=== PATIENT | male | born 1990 | race African-American/Black ===

== ENCOUNTER 2023-09-01 17:14 | Observation (INO) | payer OTHER ==
[2023-09-01] MEDS ORDERED: NA CHLORIDE 0.9% 1,000 ML ONE ×3 (18:02→22:09)
[2023-09-01 18:07] LABS: Absolute Lymphocytes (CBC) 1.5 K/uL (0.7-4.9); Absolute Monocytes 0.9 K/uL (0.1-1.3); Absolute Neutrophil 4.1 K/uL (1.8-8.0); Basophils % 0.6 % (0-1.3); Eosinophils % 0.2 % (0-4.4); Hematocrit 30.1 % (39.6-49.0); Hemoglobin 9.9 g/dL (13.6-17.9); Lymphocytes % 23.5 % (15.3-44.8); MCH 31.7 pg (27.0-35.0); MCHC 32.8 g/dL (32.0-36.0); MCV 96.8 fL (80-100); MPV 7.5 fL (7.6-11.3); Monocytes % 13.5 % (3.3-12.3); Neutrophils % 62.2 % (41.7-73.7); Nucleated Red Blood Cells % 0.1 % (0-0); Platelets 358 thou/uL (152-406); RBC Red Blood Cell Count 3.11 M/uL (4.33-5.43); Red Cell Distribution Width 16.5 % (12.1-15.2)
[2023-09-01 18:33] LABS: Albumin 3.4 g/dL (3.4-5.0); Albumin/Globulin Ratio 0.5 (1.1-1.8); Anion Gap 9.8 mEq/L (5.0-15.0); Bilirubin Direct 0.2 mg/dL (0-0.2); Bilirubin Indirect, Calculated 0.3 mg/dL (0.2-0.8); Bilirubin Total 0.5 mg/dL (0.2-1.0); Globulin 6.3 g/dL (2.3-3.5); Potassium 3.8 mEq/L (3.5-5.1); Protein, Total 9.7 g/dL (6.4-8.2); Troponin High Sensitivity 4.7 pg/mL (<58.9)
[2023-09-01] MEDS ORDERED: LORazepam 2 MG/ML VIAL ONE ×2 (19:00→19:21)
[2023-09-01] MEDS ORDERED: ONDANSETRON 4 MG/2 ML VIAL ONE (19:21)
[2023-09-01] MEDS ORDERED: ZIPRASIDONE MESYLA 20 MG/VIAL IM ONE (21:48)
[2023-09-01] MEDS ORDERED: WATER FOR INJ,STERILE 10 ML ONE (21:48)
[2023-09-01 21:55] LABS: Barbiturates NEGATIVE (NEGATIVE); Benzodiazepines NEGATIVE (NEGATIVE); Cocaine NEGATIVE (NEGATIVE); METHAMPHETAM POSITIVE (NEGATIVE); Methadone NEGATIVE (NEGATIVE); Opiates NEGATIVE (NEGATIVE); Phencyclidine NEGATIVE (NEGATIVE); THC Cannibis NEGATIVE (NEGATIVE)
[2023-09-01] MEDS ORDERED: THIAMINE 200 MG/2 ML INJ ONE (22:07)
[2023-09-01] MEDS ORDERED: FOLIC ACID 5 MG/ML VIAL ONE (22:08)
[2023-09-01] MEDS ORDERED: MULTIVITAMINS 10 ML VIAL (INJ) IV ONE (22:08)
--- NOTE | 2023-09-02 00:10 | EDPHYS ---
Physician Documentation [facility] Name: Antwan Ashley Age: 32 yrs Sex: Male : 1990 Arrival Date: 09/01/2023 Time: 17:14 Bed 16 Private MD: ED Physician Kuldip Dougherty HPI: 08/31 19:11 This 32 yrs old Black Male presents to ER via Law Enforcement with complaints of rt Possible Overdose. 19:11 Patient presents to the ED in police custody for possible overdose. Patient was found rt methamphetamines. They are concerned that the patient may have been hiding amphetamines. Denies any physical complaints at this time, symptoms are moderate severity, no other aggravating relieving factors.. Historical: - Allergies: 17:22 No Known Allergies; cp4 - Immunization history:: Adult Immunizations up to date. - Infectious Disease History:: Denies. CDIFF, C. Auris, ESBL, MRSA (w/in 1 year), VRE (w/in 1 year), TB, . - Social history:: Smoking status: unknown. - Family history:: not pertinent. ROS: 19:11 Constitutional: Negative for fever, chills, and weight loss, Cardiovascular: Negative rt for chest pain, palpitations, and edema, Respiratory: Negative for shortness of breath, cough, wheezing, and pleuritic chest pain, Abdomen/GI: Negative for abdominal pain, nausea, vomiting, diarrhea, and constipation, MS/Extremity: Negative for injury and deformity, Skin: Negative for injury, rash, and discoloration, Exam: 19:11 Constitutional: This is a well developed, well nourished patient who is awake, alert, rt and in no acute distress. Head/Face: Normocephalic, atraumatic. Chest/axilla: Normal chest wall appearance and motion. Nontender with no deformity. No lesions are appreciated. Cardiovascular: Regular rate and rhythm with a normal S1 and S2. No gallops, murmurs, or rubs. Normal PMI, no JVD. No pulse deficits. Respiratory: Lungs have equal breath sounds bilaterally, clear to auscultation and percussion. No rales, rhonchi or wheezes noted. No increased work of breathing, no retractions or nasal flaring. Abdomen/GI: Soft, non-tender, with normal bowel sounds. No distension or tympany. No guarding or rebound. No evidence of tenderness throughout. Skin: Warm, dry with normal turgor. Normal color with no rashes, no lesions, and no evidence of cellulitis. MS/ Extremity: Pulses equal, no cyanosis. Neurovascular intact. Full, normal range of motion. 19:11 ECG was reviewed by the Attending Physician. Vital Signs: 17:17 BP 152 / 110; Pulse 112; Resp 18; Temp 98; Pulse Ox 100% ; Weight 81.65 kg; Height 5 cp4 ft. 11 in. ; 18:42 BP 163 / 105; Pulse 117; Resp 18; Pulse Ox 95% ; cp4 19:30 BP 162 / 104; Pulse 109; Resp 18; Pulse Ox 98% ; cp4 20:40 BP 145 / 106; Pulse 118; Resp 18; Pulse Ox 97% ; cp4 22:50 BP 137 / 89; Pulse 118; Resp 20 S; Pulse Ox 100% on R/A; ha1 23:30 BP 144 / 85; Pulse 111; Resp 17 S; Pulse Ox 100% on R/A; ha1 09/01 00:20 BP 131 / 84; Pulse 109; Resp 17 S; Pulse Ox 100% on R/A; ha1 01:20 BP 138 / 89; Pulse 104; Resp 17 S; Pulse Ox 100% on R/A; ha1 08/31 17:17 Body Mass Index 25.10 (81.65 kg, 180.34 cm) cp4 MDM: 08/31 17:33 Patient medically screened. rt 09/01 00:02 ED course: EXAM DESCRIPTION: CT of the head without contrast CLINICAL HISTORY: AMS sp4 COMPARISON: None available TECHNIQUE: Axial CT of the head obtained from the skull apex to the skull base without contrast. This exam was performed according to our departmental dose-optimization program, which includes automated exposure control, adjustment of the mA and/or kV according to patient size and/or use of iterative reconstruction technique. FINDINGS: No acute intracranial hemorrhage identified. No mass, mass effect, midline shift, or abnormal extra-axial fluid collection. No CT evidence of acute ischemic change identified, however, MRI is more sensitive in the assessment of acute ischemia. Probable prominent perivascular space on the right. Ventricular system and sulcal spaces are normal in size and morphology. Basilar cisterns are patent. Visualized orbits and globes show no acute abnormality. No skull fracture identified. Patchy mucosal thickening involving the ethmoid air cells bilaterally. Remainder of the visualized paranasal sinuses and mastoid air cells are well aerated. IMPRESSION: No acute intracranial abnormality on noncontrast CT. . 00:09 Differential diagnosis: polypharmacy, over medication, hypoglycemia, closed head sp4 injury, intracranial hemorrhage. Data reviewed: vital signs, nurses notes, lab test result(s), radiologic studies, CT scan. Consideration of Admission/Observation Escalation of care including admission/observation considered. ED course: Patient's workup is indicative of acute methamphetamine intoxication plus rhabdomyolysis which is mild. Patient also has exhibited around the penis which was cut off in the emergency department. Patient does have swollen penis but there is no sign of penile necrosis. Patient warrants admission secondary to the fact that he continues to have acute delirium. Patient had to be given Ativan and Geodon for acute hyperactive delirium right now he is resting but warrants hospital admission overnight. . 08/31 17:33 Order name: Basic Metabolic Panel; Complete Time: 18:51 rt 08/31 17:33 Order name: CBC with Diff; Complete Time: 18:51 rt 08/31 17:33 Order name: LFT's; Complete Time: 18:51 rt 08/31 17:33 Order name: Magnesium; Complete Time: 18:51 rt 08/31 17:33 Order name: Troponin HS; Complete Time: 18:51 rt 08/31 17:33 Order name: CPK; Complete Time: 18:51 rt 08/31 18:52 Order name: CPK: repeat after ivf; Complete Time: 21:31 rt 08/31 21:31 Order name: Urine Drug Screen; Complete Time: 23:06 sp4 08/31 21:31 Order name: Alcohol Level; Complete Time: 23:06 sp4 08/31 21:31 Order name: Lactate w/ 2H reflex if indic.; Complete Time: 23:06 sp4 09/01 00:20 Order name: Urinalysis w/ reflexes EDMS 09/01 00:20 Order name: CBC with Automated Diff EDMS 09/01 00:20 Order name: CBC with Automated Diff EDMS 09/01 00:20 Order name: Comprehensive Metabolic Panel EDMS 09/01 00:20 Order name: Comprehensive Metabolic Panel EDMS 09/01 00:20 Order name: Creatine Phosphokinase [facility] 09/01 00:20 Order name: Creatine Phosphokinase [facility] 09/01 00:20 Order name: Creatine Phosphokinase [facility] 09/01 00:20 Order name: Creatine Phosphokinase [facility] 08/31 21:31 Order name: CT Head Brain wo Cont sp4 08/31 17:33 Order name: EKG; Complete Time: 17:34 rt 08/31 17:33 Order name: Cardiac monitoring; Complete Time: 17:55 rt 08/31 17:33 Order name: EKG - Nurse/Tech; Complete Time: 18:12 rt 08/31 17:33 Order name: IV Saline Lock; Complete Time: 17:55 rt 08/31 17:33 Order name: Labs collected and sent; Complete Time: 17:55 rt 08/31 17:33 Order name: O2 Per Protocol; Complete Time: 18:12 rt 08/31 17:33 Order name: O2 Sat Monitoring; Complete Time: 18:12 rt EC/20 19:11 Rate is 117 beats/min. Rhythm is regular, Sinus tachycardia with No ectopy. QRS [place] is rt Normal. MO interval is normal. QRS interval is normal. QT interval is normal. No Q waves. T waves are Normal. No ST changes noted. Interpreted by me. Administered Medications: 18:13 Drug: NS 0.9% IV 1000 ml IV at 1000 ml once Route: IV; Rate: 1000 ml; Site: left cp4 antecubital; 18:56 Follow up: Response: No adverse reaction; IV Status: Completed infusion cp4 19:06 Drug: NS 0.9% IV 1000 ml IV at 1000 ml once Route: IV; Rate: 1000 ml; Site: left cp4 antecubital; 19:25 Follow up: IV Status: Completed infusion cp4 19:25 Follow up: Response: No adverse reaction cp4 19:06 Drug: Ativan IVP 1 mg IVP once Route: IVP; Site: left antecubital; cp4 19:19 Follow up: Response: No adverse reaction cp4 19:24 Drug: Ativan IVP 1 mg IVP once Route: IVP; Site: left antecubital; cp4 19:24 Follow up: Response: No adverse reaction cp4 19:24 Drug: Ondansetron IVP 4 mg IVP once; over 2 minutes Route: IVP; Site: left antecubital; cp4 19:24 Follow up: Response: No adverse reaction cp4 21:56 Drug: Geodon IM 20 mg IM once Route: IM; Site: left deltoid; ha1 23:00 Follow up: Response: No adverse reaction; Anxiety decreased; RASS: Drowsy (-1) ha1 22:00 Drug: Banana Bag - (Multivitamin IV 1 amp, NS 0.9% IV 1000 ml, Thiamine IV 100 mg, ha1 foLIC Acid IVPB 1 mg) IV at calculated rate once Route: IV; Rate: calculated rate; Site: right antecubital; 09/01 02:00 Follow up: Response: No adverse reaction; IV Status: Infusion continued; IV Intake: ha1 500ml Disposition Summary: 09/02/23 00:09 Hospitalization Ordered Notes: Hospitalization Status: Observation sp4 Provider: Sammy Brown Location: Telemetry/MedSurg (observation) sp4 Condition: Stable sp4 Problem: new sp4 Symptoms: have improved sp4 Bed/Room Type: Standard sp4 Room Assignment: 202(09/02/23 00:43) lg3 Diagnosis - Acute hyperactive delirium secondary to methamphetamine, methamphetamine abuse, sp4 acute penile swelling, rhabdomyolysis Forms: - Medication Reconciliation Form sp4 - SBAR form sp4 - Leadership Thank You Letter sp4 Signatures: Dispatcher [employer] Bianca Guardado RN RN 3 Krystyna Gaviria RN RN ha1 Edward Farmer MD MD rt Villegas, Rebecca rv1 Kuldip Dougherty MD MD 4 Rachel Ulloa 4 Corrections: (The following items were deleted from the chart) 08/31 17:34 17:34 BASIC METABOLIC PANEL+C.LAB.BRZ ordered. EDMS EDMS 17:34 17:34 CBC+H.LAB.BRZ ordered. EDMS EDMS 17:34 17:34 HEPATIC FUNCTION+C.LAB.BRZ ordered. EDMS EDMS 17:34 17:34 MAGNESIUM+C.LAB.BRZ ordered. EDMS EDMS 17:34 17:34 Troponin High Sensitivity+C.LAB.BRZ ordered. EDMS EDMS 17:34 17:34 CREATINE PHOSPHOKINASE+C.LAB.BRZ ordered. EDMS EDMS 21:31 21:31 Head Brain Wo Cont+CT.RAD.BRZ ordered. EDMS EDMS : URINE DRUG SCREEN+UC.LAB.BRZ ordered. EDMS EDMS : ETHANOL+C.LAB.BRZ ordered. EDMS EDMS 09/01 00:41 00:09 sp4 rv1 00:43 00:41 426 rv1 lg3
--- NOTE | 2023-09-02 00:10 | ER ---
Nurse's Notes [facility] Name: Antwan Ashley Age: 32 yrs Sex: Male : 1990 Arrival Date: 09/01/2023 Time: 17:14 Bed 16 Private MD: Diagnosis: Acute hyperactive delirium secondary to methamphetamine, methamphetamine abuse, acute penile swelling, rhabdomyolysis Presentation: 08/31 17:17 Chief complaint: police report possible ingestion and states they need medical cp4 clearance to take patient to [facility]. Coronavirus screen: Client denies travel out of the [place] in the last 14 days. At this time, the client does not indicate any symptoms associated with coronavirus-19. Ebola Screen: Patient negative for fever greater than or equal to 101.5 degrees Fahrenheit, and additional compatible Ebola Virus Disease symptoms Patient denies exposure to infectious person. Patient denies travel to an Ebola-affected area in the 21 days before illness onset. No symptoms or risks identified at this time. Initial Sepsis Screen: Does the patient meet any 2 criteria? HR > 90 bpm. No. Patient's initial sepsis screen is negative. Does the patient have a suspected source of infection? No. Patient's initial sepsis screen is negative. Risk Assessment: Do you want to hurt yourself or someone else? Patient reports no desire to harm self or others. Onset of symptoms was September 01, 2023. 17:17 Method Of Arrival: Law Enforcement: Karyn HELM cp4 17:17 Acuity: SHANI 3 cp4 Triage Assessment: 17:22 General: Appears in no apparent distress. Behavior is calm, cooperative, appropriate cp4 for age. Pain: Denies pain. Historical: - Allergies: 17:22 No Known Allergies; cp4 - Immunization history:: Adult Immunizations up to date. - Infectious Disease History:: Denies. CDIFF, C. Auris, ESBL, MRSA (w/in 1 year), VRE (w/in 1 year), TB, . - Social history:: Smoking status: unknown. - Family history:: not pertinent. Screenin:24 [facility] ED Fall Risk Assessment (Adult) History of falling in the last 3 months, cp4 including since admission No falls in past 3 months (0 pts). Abuse screen: Denies threats or abuse. Nutritional screening: No deficits noted. Tuberculosis screening: No symptoms or risk factors identified. Assessment: 17:24 Reassessment: Patient appears in no apparent distress at this time. cp4 17:24 Cardiovascular: No deficits noted. Respiratory: No deficits noted. cp4 20:04 Reassessment: Nurse alerted to tie wrap around patient's penis by [place] officer. cp4 Provider notified and tie wrap removed. 22:10 General: Appears unkempt, Behavior is anxious, restless. Pain: Unable to use pain ha1 scale. FLACC scale score is 0 out of 10. Neuro: Level of Consciousness is awake, Oriented to person, place. Cardiovascular: Patient's skin is warm and dry. Respiratory: Airway is patent Respiratory effort is even, unlabored, Respiratory pattern is regular, symmetrical. : SWELLING OF PENIS. Derm: Skin is normal. Musculoskeletal: Circulation, motion, and sensation intact. Range of motion: intact in all extremities. 23:00 Reassessment: EYES CLOSED. ha1 23:00 Respiratory: Airway is patent Respiratory effort is even, unlabored, Respiratory ha1 pattern is regular, symmetrical. 09/01 00:00 Reassessment: EYES CLOSED. Respiratory: Airway is patent Respiratory effort is even, ha1 unlabored, Respiratory pattern is regular, symmetrical. 01:00 Reassessment: Patient and/or family updated on plan of care and expected duration. Pain ha1 level reassessed. 01:14 Reassessment: FAX SHEET SENT AND RECEIVED BY TYLER MONTGOMERY. ha1 02:00 Reassessment: Patient and/or family updated on plan of care and expected duration. Pain ha1 level reassessed. 02:00 Respiratory: Airway is patent Respiratory effort is even, unlabored, Respiratory ha1 pattern is regular, symmetrical. Overdose: 01:00 [place] Suicide Severity Screening: "In the past month, have you wished you were ha1 or wished you could go to sleep and not wake up?" REFUSED TO ANSWER "In the past month, have you actually had any thoughts of killing yourself?" "In your lifetime, have you ever done anything, started to do anything, or prepared to do anything to end your life?". Vital Signs: 08/31 17:17 BP 152 / 110; Pulse 112; Resp 18; Temp 98; Pulse Ox 100% ; Weight 81.65 kg; Height 5 cp4 ft. 11 in. ; 18:42 BP 163 / 105; Pulse 117; Resp 18; Pulse Ox 95% ; cp4 19:30 BP 162 / 104; Pulse 109; Resp 18; Pulse Ox 98% ; cp4 20:40 BP 145 / 106; Pulse 118; Resp 18; Pulse Ox 97% ; cp4 22:50 BP 137 / 89; Pulse 118; Resp 20 S; Pulse Ox 100% on R/A; ha1 23:30 BP 144 / 85; Pulse 111; Resp 17 S; Pulse Ox 100% on R/A; ha1 09/01 00:20 BP 131 / 84; Pulse 109; Resp 17 S; Pulse Ox 100% on R/A; ha1 01:20 BP 138 / 89; Pulse 104; Resp 17 S; Pulse Ox 100% on R/A; ha1 08/31 17:17 Body Mass Index 25.10 (81.65 kg, 180.34 cm) cp4 ED Course: 08/31 17:16 Patient arrived in ED. cp4 17:17 Rachel Ulloa is Primary Nurse. cp4 17:18 Edward Farmer MD is Attending Physician. rt 17:22 Triage completed. cp4 17:22 Arm band placed on right wrist. Patient placed in an exam room, on a stretcher. cp4 17:24 Bed in low position. Call light in reach. Side rails up X2. Security at bedside. cp4 18:00 Initial lab(s) drawn, by me, sent to lab. EKG done, by ED staff. Inserted saline lock: [id number] 20 gauge in left antecubital area, using aseptic technique. Blood collected. 18:12 Basic Metabolic Panel Sent. cp4 19:07 Attending Physician role handed off by Edward Farmer MD sp4 19:07 Kuldip Dougherty MD is Attending Physician. sp4 21:42 Urine Drug Screen Sent. ha1 21:59 Lactate w/ 2H reflex if indic. Sent. oe 22:00 Report received from TYLER DUNLAP. ha1 22:05 Provided Education on: MEDICATION ADMINISTRATION . ha1 22:53 CT Head Brain wo Cont In Process Unspecified. EDMS 09/01 00:07 Sammy Brown MD is Hospitalizing Provider. sp4 01:57 No provider procedures requiring assistance completed. ha1 02:50 Patient admitted, IV remains in place. ha1 Administered Medications: 08/31 18:13 Drug: NS 0.9% IV 1000 ml IV at 1000 ml once Route: IV; Rate: 1000 ml; Site: left cp4 antecubital; 18:56 Follow up: Response: No adverse reaction; IV Status: Completed infusion cp4 19:06 Drug: NS 0.9% IV 1000 ml IV at 1000 ml once Route: IV; Rate: 1000 ml; Site: left cp4 antecubital; 19:25 Follow up: IV Status: Completed infusion cp4 19:25 Follow up: Response: No adverse reaction cp4 19:06 Drug: Ativan IVP 1 mg IVP once Route: IVP; Site: left antecubital; cp4 19:19 Follow up: Response: No adverse reaction cp4 19:24 Drug: Ativan IVP 1 mg IVP once Route: IVP; Site: left antecubital; cp4 19:24 Follow up: Response: No adverse reaction cp4 19:24 Drug: Ondansetron IVP 4 mg IVP once; over 2 minutes Route: IVP; Site: left antecubital; cp4 19:24 Follow up: Response: No adverse reaction cp4 21:56 Drug: Geodon IM 20 mg IM once Route: IM; Site: left deltoid; ha1 23:00 Follow up: Response: No adverse reaction; Anxiety decreased; RASS: Drowsy (-1) ha1 22:00 Drug: Banana Bag - (Multivitamin IV 1 amp, NS 0.9% IV 1000 ml, Thiamine IV 100 mg, ha1 foLIC Acid IVPB 1 mg) IV at calculated rate once Route: IV; Rate: calculated rate; Site: right antecubital; 09/01 02:00 Follow up: Response: No adverse reaction; IV Status: Infusion continued; IV Intake: ha1 500ml Medication: 08/31 17:24 VIS not applicable for this client. cp4 Intake: 09/01 02:00 IV: 500ml; Total: 500ml. ha1 Outcome: 00:09 Decision to Hospitalize by Provider. sp4 01:15 Admitted to Med/surg accompanied by leila, via stretcher, with chart, Report called to bahman MONTGOMERY RN 02:50 Condition: stable ha1 02:50 Instructed on the need for admit, 1 02:53 Patient left the ED. ha1 Signatures: Dispatcher [employer] EDMS Bright Smart Heidy, RN RN ha1 Edward Farmer MD MD rt Kuldip Dougherty MD MD sp4 Rachel Ulloa cp4 Angel Sanchez [id number]
[2023-09-02] MEDS ORDERED: ACETAMINOPHEN 325 MG TABLET PO PRN (00:14)
[2023-09-02] MEDS ORDERED: ONDANSETRON 4 MG/2 ML VIAL IV PRN (00:14)
--- NOTE | 2023-09-02 00:14 | P.HP ---
Certification for Inpatient Patient admitted to: Observation With expected LOS: <2 Midnights Practitioner: I am a practitioner with admitting privileges, knowledge of patient current condition, hospital course, and medical plan of care. Services: Services provided to patient in accordance with Admission requirements found in Title 42 Section 412.3 of the Code of Federal Regulations Patient History Date of Service: 09/02/23 Reason for admission: Altered mental status History of Present Illness: 32 yrs old Male with unknown past medical history brought to ER with altered mental status. Patient is barely arousable and has could not offer any history hence most of the history is obtained from the chart review and also talking to the ER physician . He was brought to ER via Law Enforcement with complaints of Possible Overdose. Patient presents to the ED in police custody for possible overdose. Patient was found to have methamphetamines. They are concerned that the patient may have been hiding amphetamines. He was assessed in the ER and started on supportive management Patient was admitted for further management for medical clearance Allergies No Known Allergies Allergy (Unverified 09/02/23 00:28) - Past Medical/Surgical History Past Medical History: Unable to obtain Past Surgical History: Unable to obtain - Social History Smoking Status: Unknown if ever smoked Review of Systems is unable to be obtained Physical Examination - Vital Signs Temperature: 98 F Blood Pressure: 152/110 Pulse: 112 Respirations: 18 Pulse Ox (%): 94 - Physical Exam General: Other (Drowsy barely arousable ) HEENT: Atraumatic, Normocephalic Neck: Supple, 2+ carotid pulse no bruit, JVD not distended Respiratory: Clear to auscultation bilaterally, Normal air movement Cardiovascular: No edema, Regular rate/rhythm, Normal S1 S2 Capillary refill: <2 Seconds Gastrointestinal: Soft and benign, Non-distended, W/out hepatosplenomegaly Musculoskeletal: No clubbing, No swelling Integumentary: No rashes, No breakdown Neurological: Other (Drowsy , barely arousable ) Lymphatics: No axilla or inguinal lymphadenopathy - Studies Laboratory Data (last 24 hrs) 09/01/23 09/01/23 18:00 18:00 WBC 6.60 Hgb 9.9 L Hct 30.1 L Plt Count 358 Sodium 141 Potassium 3.8 BUN 29 H Creatinine 0.93 Glucose 100 Magnesium 2.0 Total Bilirubin 0.5 AST 76 H ALT 76 H Alkaline Phosphatase 73 Assessment and Plan - Problems (Diagnosis) (1) Drug overdose Current Visit: Yes Status: Acute Plan: Overdoses with methamphetamine Supportive management Monitor under telemetry IV hydration Elevated LFTs Monitor hepatic parameters Rhabdomyolysis CK levels monitored IV hydration Anemia of chronic disease Monitor CBC Transfuse as needed if hemoglobin drops less than 7 Substance abuse with methamphetamine Urine tox screen noted - GI/DVT prophylaxis Advanced directive full code Discharge Plan: Other Plan to discharge in: 24 Hours - Advance Directives Does patient have a Living Will: No Does patient have a Durable POA for Healthcare: No - Code Status/Comfort Care Code Status: Full Code Time Spent Managing Pts Care (In Minutes): 48
[2023-09-02 03:38] VITALS: O2SAT 100
[2023-09-02 04:12] VITALS: BMI 25.1
[2023-09-02] MEDS: NA CHLORIDE 0.9% 1,000 ML IV SCH (09:06)
--- NOTE | 2023-09-02 10:35 | P.DS ---
Admission Date: 09/02/23 Discharge Date: 09/02/23 Reason for Admission: Altered mental status Brief History of Present Illness: 32 yrs old Male with unknown past medical history brought to ER with altered mental status. Patient is barely arousable and has could not offer any history hence most of the history is obtained from the chart review and also talking to the ER physician . He was brought to ER via Law Enforcement with complaints of Possible Overdose. Patient presents to the ED in police custody for possible overdose. Patient was found to have methamphetamines. They are concerned that the patient may have been hiding amphetamines. - Physical Exam General: Other AOX HEENT: Atraumatic, Normocephalic Neck: Supple, 2+ carotid pulse no bruit, JVD not distended Respiratory: Clear to auscultation bilaterally, Normal air movement Cardiovascular: No edema, Regular rate/rhythm, Normal S1 S2 Capillary refill: <2 Seconds Gastrointestinal: Soft and benign, Non-distended, W/out hepatosplenomegaly Musculoskeletal: No clubbing, No swelling Integumentary: No rashes, No breakdown Neurological: Other AOX3 Lymphatics: No axilla or inguinal lymphadenopathy Hospital Course: 32 year-old male patient presented with possible drug overdose. Was noted to have urine drug screen positive methamphetamines. Condition improved with IV fluids. Patient tolerating diet, stable for discharge to home with follow-up appointment with primary care physician. Awake and alert and ambulating independently. PROBLEM: Possible drug overdose improved with IV fluids, Dehydration, elevated CK, improved with IV, awake and alert tolerating diet Continue home medicines as previously prescribed GOAL: Clear understanding of disease process INSTRUCTIONS: Physician Discharge Instructions: -DC IV and DC home -Follow-up with PCP in 1 to 2 weeks -Please call Dr. Salcedo at [phone] if any questions regarding hospital stay -Please call nursing station at [phone] if any nursing or medication questions -Return to the emergency room if symptoms worsen Diet: ADA, low sodium Activity: Fall precautions \ <Yolanda Arteaga - Last Filed: 09/02/23 14:56> Admission Date: 09/02/23 Discharge Date: 09/02/23 Hospital Course: Patient has done well during hospitalization. Patient is clinically feeling better. Patient is eating and tolerating diet without difficulty. Patient is ambulating and feeding himself. Patient's CPK has improved. Renal function has improved. At this time, patient is doing well and clinically stable for discharge. Patient denies any suicidal ideations. Patient denies any other complaints so we will proceed with discharge home and follow-up with PCP. <Attila Salcedo - Last Filed: 09/02/23 18:25> Disposition: ROUTINE DISCHARGE Discharge Condition: GOOD Vital Signs/Physical Exam: Temp Pulse Resp BP Pulse Ox 98.6 F 112 H 16 112/69 100 09/02/23 04:00 09/02/23 04:00 09/02/23 04:00 09/02/23 04:00 09/02/23 04:00 Laboratory Data at Discharge: WBC 6.60 thou/uL (4.3-10.9) 09/01/23 18:00 Hgb 9.9 g/dL (13.6-17.9) L 09/01/23 18:00 Hct 30.1 % (39.6-49.0) L 09/01/23 18:00 Plt Count 358 thou/uL (152-406) 09/01/23 18:00 Sodium 141 mEq/L (136-145) 09/01/23 18:00 Potassium 3.8 mEq/L (3.5-5.1) 09/01/23 18:00 BUN 29 mg/dL (7-18) H 09/01/23 18:00 Creatinine 0.93 mg/dL (0.70-1.30) 09/01/23 18:00 Glucose 100 mg/dL (74-106) 09/01/23 18:00 Magnesium 2.0 mg/dL (1.6-2.4) 09/01/23 18:00 Total Bilirubin 0.5 mg/dL (0.2-1.0) 09/01/23 18:00 AST 76 U/L (15-37) H 09/01/23 18:00 ALT 76 U/L (16-61) H 09/01/23 18:00 Alkaline Phosphatase 73 U/L (45-117) 09/01/23 18:00 <Yolanda Arteaga - Last Filed: 09/02/23 14:56> Vital Signs/Physical Exam: Temp Pulse Resp BP Pulse Ox 98.1 F 111 H 20 107/57 L 96 09/02/23 16:00 09/02/23 16:00 09/02/23 16:00 09/02/23 16:00 09/02/23 16:00 General: Alert, In no apparent distress, Oriented x3 Laboratory Data at Discharge: WBC 6.60 thou/uL (4.3-10.9) 09/01/23 18:00 Hgb 9.9 g/dL (13.6-17.9) L 09/01/23 18:00 Hct 30.1 % (39.6-49.0) L 09/01/23 18:00 Plt Count 358 thou/uL (152-406) 09/01/23 18:00 Sodium 141 mEq/L (136-145) 09/01/23 18:00 Potassium 3.8 mEq/L (3.5-5.1) 09/01/23 18:00 BUN 29 mg/dL (7-18) H 09/01/23 18:00 Creatinine 0.93 mg/dL (0.70-1.30) 09/01/23 18:00 Glucose 100 mg/dL (74-106) 09/01/23 18:00 Magnesium 2.0 mg/dL (1.6-2.4) 09/01/23 18:00 Total Bilirubin 0.5 mg/dL (0.2-1.0) 09/01/23 18:00 AST 76 U/L (15-37) H 09/01/23 18:00 ALT 76 U/L (16-61) H 09/01/23 18:00 Alkaline Phosphatase 73 U/L (45-117) 09/01/23 18:00 <Attila Salcedo - Last Filed: 09/02/23 18:25> Time spent managing pt's care (in minutes): 55 <Yolanda Arteaga - Last Filed: 09/02/23 14:56> <Attila Salcedo - Last Filed: 09/02/23 18:25> Home Medications: NK [No Home Meds] 09/02/23 Physician Discharge Instructions: -DC IV and DC home -Follow-up with PCP in 1 to 2 weeks -Follow-up with Cardiology in 1 to 2 weeks -Please call Dr. Salcedo at [phone] if any questions regarding hospital stay -Please call nursing station at [phone] if any nursing or medication questions -Return to the emergency room if symptoms worsen Followup: NONE,NONE [Primary Care Provider] -
[2023-09-02] MEDS: NA CHLORIDE 0.9% 1,000 ML IV ONE ×2 (11:53→16:36)
[2023-09-02 13:12] VITALS: BP 107/57; TEMP 98.1
--- NOTE | 2023-09-02 15:00 | P.PN ---
Subjective Date of Service: 09/02/23 Chief Complaint: Altered mental status Brought in by police for apparent drug overdose UDS positive for methamphetamine Elevated CK patient is on IV fluids, no reported abdominal pain, Alert and oriented x 3 answering questions appropriately, no no suicidal ideation - Physical Exam General: Alert and oriented x 3 HEENT: Atraumatic, Normocephalic Neck: Supple, 2+ carotid pulse no bruit, JVD not distended Respiratory: Clear to auscultation bilaterally, Normal air movement Cardiovascular: No edema, Regular rate/rhythm, Normal S1 S2 Capillary refill: <2 Seconds Gastrointestinal: Soft and benign, Non-distended, W/out hepatosplenomegaly Musculoskeletal: No clubbing, No swelling Integumentary: No rashes, No breakdown Neurological: Alert and oriented x 3 answering questions Lymphatics: No axilla or inguinal lymphadenopathy Review of Systems Per HPI Physical Examination - Vital Signs Temperature: 98.1 F Blood Pressure: 107/57 Pulse: 111 Respirations: 20 Pulse Ox (%): 96 - Studies Laboratory Data (last 24 hrs) 09/01/23 09/01/23 18:00 18:00 WBC 6.60 Hgb 9.9 L Hct 30.1 L Plt Count 358 Sodium 141 Potassium 3.8 BUN 29 H Creatinine 0.93 Glucose 100 Magnesium 2.0 Total Bilirubin 0.5 AST 76 H ALT 76 H Alkaline Phosphatase 73 Assessment And Plan - Plan Assessment and Plan Overdoses with methamphetamine Supportive management Monitor under telemetry IV hydration Trend CK Elevated LFTs Monitor hepatic parameters Rhabdomyolysis improving CK levels monitored IV hydration Anemia of chronic disease Monitor CBC Transfuse as needed if hemoglobin drops less than 7 Substance abuse with methamphetamine Urine tox screen noted - GI/DVT prophylaxis Advanced directive full code Discharge Plan: Other Plan to discharge in: 24 Hours Discharge Plan: Home - Code Status/Comfort Care Code Status: Full Code Critical Care: No Time Spent Managing PTS Care (In Minutes): 35
--- NOTE | 2023-09-02 19:40 | RAD REPORT ---
EXAM DESCRIPTION: CT - Head Brain Wo Cont - 09/02/2023 6:52 am CLINICAL HISTORY: AMS COMPARISON: None available TECHNIQUE: Axial CT of the head obtained from the skull apex to the skull base without contrast. Thi s exam was performed according to our departmental dose-optimization program, which includes automate d exposure control, adjustment of the mA and/or kV according to patient size and/or use of iterative reconstruction technique. FINDINGS: No acute intracranial hemorrhage identified. No mass, mass effect, midline shift, or abnor mal extra-axial fluid collection. No CT evidence of acute ischemic change identified, however, MRI is more sensitive in the assessment of acute ischemia. Probable prominent perivascular space on the right. Ventricular system and sulcal spaces are normal in size and morphology. Basilar cisterns are patent. Visualized orbits and globes show no acute abnormality. No skull fracture identified. Patchy muco hannah thickening involving the ethmoid air cells bilaterally. Remainder of the visualized paranasal sin uses and mastoid air cells are well aerated. IMPRESSION: No acute intracranial abnormality on noncontrast CT. Electronically signed by: Kimmy Kingsley MD 09/01/2023 11:20 PM CDT Due to temporary technical issues with the PACS/Fluency reporting system, reports are being signed by the in house radiologists without review as a courtesy to insure prompt reporting. The interpreting radiologist is fully responsible for the content of the report.
== END 2023-09-02 18:34 | disposition home or self-care (01) ==
LOC: ER 17:14 → ERHOLD 09-02 00:14 → 2ND 09-02 02:00
PROVIDERS: ADMIT Family Medicine; ATTEND Hospitalist
DX: T43.651A Poisoning by methamphetamines accidental (unintentional), initial encounter (principal); R41.82 Altered mental status, unspecified; R79.89 Other specified abnormal findings of blood chemistry; M62.82 Rhabdomyolysis; D63.8 Anemia in other chronic diseases classified elsewhere; N48.29 Other inflammatory disorders of penis
CPT/HCPCS: 85025; 80048; 36415; 83735; 82550 ×4; 80076; 83605; 84484; 80307; 70450; 82077; J3411; J3486; J2405; J7030 ×6; 93005; G0378